=== PATIENT | male | born 1985 | race Caucasian/White ===

== ENCOUNTER 2016-07-06 08:37 | Emergency (ER) | payer SELFPAY ==
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
[2016-07-06 09:31] VITALS: RESP 16; TEMP 98.8
== END 2016-07-06 09:23 ==
LOC: ER 08:37
DX: Z04.8 Encounter for examination and observation for other specified reasons (principal)
CPT/HCPCS: 99282